=== PATIENT | male | born 1995 | race Caucasian/White ===

== ENCOUNTER 2018-08-05 11:53 | Emergency (ER) | payer OTHER, SELFPAY ==
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
[2018-08-05] MEDS ORDERED: Naproxen 500 MG TAB ONE (13:58)
== END 2018-08-05 14:04 | disposition home or self-care (01) ==
LOC: ERS 11:53
DX: S20.212A Contusion of left front wall of thorax, initial encounter (principal); V43.62XA Car passenger injured in collision with other type car in traffic accident, initial encounter
CPT/HCPCS: 71046